=== PATIENT | male | born 1960 | race Hispanic/Latino ===

== ENCOUNTER 2017-01-02 15:40 | Inpatient (IN) | payer OTHER ==
[2017-01-02 18:19] LABS: Basophils % (Auto) 0.8 % (0.0-1.8); Eosinophils % (Auto) 1.4 % (0.0-4.3); Hematocrit 40.7 % (35.5-45.6); Hemoglobin 13.8 gm/dl (11.8-15.2); Mean Corpuscular HGB Conc 34 % (32-34); Mean Corpuscular Hemoglobin 28 pg (28-32); Mean Corpuscular Volume 83 fl (84-94); Platelet Count 243 K/mm3 (140-440); Red Cell Distribution Width 14.1 % (13.2-15.2); White Blood Count 7.9 K/mm3 (4.5-11.0)
[2017-01-02 18:43] LABS: Anion Gap 19 mmol/L; Blood Urea Nitrogen 19 mg/dL (9-20); Carbon Dioxide 24 mmol/L (22-30); Chloride 105.6 mmol/L (98-107); Glucose 163 mg/dL (75-100); Potassium 4.4 mmol/L (3.6-5.0); Sodium 144 mmol/L (137-145)
[2017-01-02 19:37] LABS: Cholesterol 191 mg/dL (50-199); HDL Cholesterol 40 mg/dL (40-59); LDL Cholesterol,Direct TNR mg/dL (50-130); Triglycerides 414 mg/dL (2-149)
[2017-01-02 20:45] LABS: INR 0.96 (0.87-1.13)
--- NOTE | 2017-01-02 20:51 | Cat Scan Report ---
FINAL REPORT PROCEDURE: CT HEAD/BRAIN WO CON TECHNIQUE: Computerized tomography of the head was performed without contrast material. HISTORY: tia vs cva COMPARISON: No prior studies are available for comparison. FINDINGS: Brain: Brain density appears normal. No evidence of intracranial hemorrhage. No parenchymal hemorrhage, mass lesions or mass effect are seen. No abnormal extraxial fluid collects or masses are seen. Ventricles: Ventricles are normal size and are midline. Sulcal pattern and fissures are mildly prominent consistent with mild atrophy. Bone Windows: No evidence of skull fracture. Paranasal sinuses: Nodular densities are seen inferiorly in the right maxillary sinus measuring up to 2 centimeters suggesting mucous retention cysts and/or polyps. No air-fluid levels are identified. Mastoid air cells: Mastoid air cells inferiorly are partially opacified. A few air-fluid levels are visualized. The remainder the mastoid air cells bilaterally are otherwise clear. IMPRESSION: No acute intracranial abnormalities are identified. If clinically indicated MRI of the brain could be obtained for further evaluation. Mild atrophy. Mild mastoid air cell disease visualized on the left. I cannot exclude mild acute mastoiditis. Mild paranasal sinus disease as described.
--- NOTE | 2017-01-02 21:30 | Cat Scan Report ---
FINAL REPORT PROCEDURE: CT ANGIO CHEST TECHNIQUE: Computerized tomographic angiography of the chest was performed after the IV injection of iodinated nonionic contrast including image processing. The image data was postprocessed using 2-dimensional multiplanar reformatted (MPR) and 3-dimensional (MIP and/or volume rendered) techniques. HISTORY: dissection protocol COMPARISON: No prior studies are available for comparison. FINDINGS: Pulmonary outflow tract, right and left main pulmonary arteries and their proximal branches: Clear, no filling defects seen to suggest pulmonary embolus. Pericardium: No evidence of pericardial effusion. Thoracic aorta: No evidence of aneurysmal dilatation or dissection. Coronary arteries: Are unremarkable. Mediastinum and hilar regions: Nonspecific subcentimeter lymph nodes are visualized. No pathologically enlarged lymph nodes or masses are identified. Lung Crenshaw: Clear Upper abdomen: Low-density nodule projects in the upper 3rd of the renal cortex of the right and left kidney which appear to represent renal cortical cyst. No acute abnormalities are seen in the upper abdomen. Other: None IMPRESSION: No evidence of pulmonary embolus. Renal cortical cysts visualized. No other abnormalities are seen.
--- NOTE | 2017-01-02 21:37 | Cat Scan Report ---
FINAL REPORT PROCEDURE: CT ANGIO ABDOMEN PELVIS TECHNIQUE: Computerized axial tomographic angiography of the abdomen and pelvis was performed during the IV injection of iodinated nonionic contrast. The image data was postprocessed using 2-dimensional multiplanar reformatted (MPR) and 3-dimensional (MIP and/or volume rendered) techniques. HISTORY: dissection protocol COMPARISON: No prior studies are available for comparison. FINDINGS: Mild atherosclerotic changes are visualized in the abdominal aorta. The vessel is mildly tortuous. There is no aneurysm or dissection visualized. Iliac arteries are mildly tortuous although widely patent. No dissection or aneurysm is seen in the abdominal aorta or iliac vessels. Celiac trunk and superior mesenteric artery as well as both renal arteries and the inferior mesenteric artery appear widely patent. Lung bases are clear. Liver density appears mildly diffusely decreased consistent with fatty infiltration. There appears to be mild sparing of fatty infiltration adjacent to the gallbladder fossa. The liver is otherwise unremarkable. The gallbladder, the adrenal glands, the pancreas and the spleen are unremarkable. Renal cortical cysts appear to project within and from the renal cortex of both kidneys. There is no hydronephrosis. No renal calculi are identified. Urinary bladder is unremarkable. Mild diverticulosis is seen in the sigmoid colon without evidence of diverticulitis. Bowel loops otherwise are unremarkable. Normal-appearing appendix is seen in the right lower quadrant. No acute bony abnormalities are seen. IMPRESSION: Minimal atherosclerotic changes are present. Vessels are mildly tortuous. There is no evidence of aneurysm, dissection or occlusion. Renal cortical cysts appear to be visualized bilaterally measuring up to 5.1 centimeter. The kidneys are otherwise unremarkable. Mild colonic diverticulosis without evidence of diverticulitis. Mild fatty infiltration the liver as described.
--- NOTE | 2017-01-02 21:55 | Emergency Department Report ---
ED General Adult HPI - General Chief complaint: Fall Stated complaint: CHEST PAIN Time Seen by Provider: 01/02/17 18:34 Source: patient, EMS, RN notes reviewed Mode of arrival: Stretcher Limitations: No Limitations - History of Present Illness Initial comments: This is a 56-year-old male, he is previously unknown to me. Past medical history includes obesity, hypertension, high cholesterol. Patient is brought to the hospital by EMS. As per EMS documentation, the patient complained of chest pain, left-sided weakness. The patient reports that he was at work and had a mechanical fall. 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 There is no documented facial droop, slurred speech, although EMS indicated that the patient seemed confused and slow to respond. The patient further reports that he fell onto his right leg and left arm. Prior to falling, he had no headache or neck pain. He is not certain if he had a syncopal event. He thinks he did not lose consciousness but is not certain. EMS documents the patient's blood pressure was quite elevated at 210/101, and subsequently 182/101. They gave aspirin and nitroglycerin in the field. Patient indicates no exacerbating or relieving factors. To me, the patient complains of fall, and nonspecific tingling in the left upper extremity and right lower extremity. He thinks he may have had chest pain, but he is not certain. -: Sudden Improves with: none Worsens with: none Associated Symptoms: weakness - Related Data Home Medications Medication Instructions Recorded Confirmed Last Taken Naproxen [Naproxen TAB] 1 tab PO PRN PRN 01/02/17 01/02/17 Unknown Previous Rx's Medication Instructions Recorded Last Taken Type Aspirin [Adult Low Dose Aspirin EC] 81 mg PO QDAY #30 tablet. 01/04/17 Unknown Rx Atenolol [Tenormin] 100 mg PO DAILY #30 tablet 01/04/17 Unknown Rx Famotidine [Pepcid] 20 mg PO BID #60 tablet 01/04/17 Unknown Rx Lovastatin [Altoprev] 40 mg PO QPM #30 tab.er.24h 01/04/17 Unknown Rx Allergies Allergy/AdvReac Type Severity Reaction Status Date / Time No Known Allergies Allergy Verified 01/02/17 16:37 ED Review of Systems ROS: Stated complaint: CHEST PAIN Other details as noted in HPI Constitutional: malaise, weakness Eyes: denies: eye discharge ENT: denies: epistaxis Respiratory: denies: cough Cardiovascular: chest pain Gastrointestinal: denies: abdominal pain Musculoskeletal: arthralgia, myalgia Skin: denies: lesions Neurological: weakness Psychiatric: anxiety ED Past Medical Hx - Past Medical History Previous Medical History?: Yes Hx Hypertension: Yes Hx CVA: No Hx Heart Attack/AMI: No Hx Congestive Heart Failure: No Hx Diabetes: No Hx Deep Vein Thrombosis: No Hx Pulmonary Embolism: No Hx GERD: No Hx Liver Disease: No Hx Renal Disease: No Hx of Cancer: No Hx Sickle Cell Disease: No Hx Arthritis: No Hx Headaches / Migraines: No Hx Seizures: No Hx Kidney Stones: No Hx Psychiatric Treatment: No Hx Asthma: No Hx COPD: No Hx Tuberculosis: No Hx Dementia: No Hx HIV: No - Surgical History Past Surgical History?: No - Social History Smoking Status: Never Smoker Substance Use Type: None - Medications Home Medications: Home Medications Medication Instructions Recorded Confirmed Last Taken Type Naproxen [Naproxen TAB] 1 tab PO PRN PRN 01/02/17 01/02/17 Unknown History Aspirin [Adult Low Dose Aspirin EC] 81 mg PO QDAY #30 tablet.dr 01/04/17 Unknown Rx Atenolol [Tenormin] 100 mg PO DAILY #30 tablet 01/04/17 Unknown Rx Famotidine [Pepcid] 20 mg PO BID #60 tablet 01/04/17 Unknown Rx Lovastatin [Altoprev] 40 mg PO QPM #30 tab.er.24h 01/04/17 Unknown Rx ED Physical Exam - General Limitations: No Limitations General appearance: obese - Head Head exam: Present: atraumatic, normocephalic - Eye Eye exam: Present: normal appearance, PERRL, EOMI. Absent: nystagmus - ENT ENT exam: Present: normal exam, normal orophraynx, mucous membranes moist, normal external ear exam - Neck Neck exam: Present: normal inspection, full ROM. Absent: tenderness, meningismus - Respiratory Respiratory exam: Present: normal lung sounds bilaterally. Absent: respiratory distress, wheezes, rales, rhonchi, stridor, chest wall tenderness, accessory muscle use, decreased breath sounds, prolonged expiratory - Cardiovascular Cardiovascular Exam: Present: regular rate, normal rhythm, normal heart sounds. Absent: bradycardia, tachycardia, irregular rhythm, systolic murmur, diastolic murmur, rubs, gallop - GI/Abdominal GI/Abdominal exam: Present: soft, normal bowel sounds. Absent: distended, tenderness, guarding, rebound, rigid, pulsatile mass - Rectal Rectal exam: Present: deferred - Extremities Exam Extremities exam: Present: normal inspection, full ROM, other (there is an abrasion on the right lower extremity. The compartments are soft. 2+ pulses noted in the bilateral upper and lower extremities). Absent: tenderness, normal capillary refill, pedal edema, calf tenderness - Back Exam Back exam: Present: normal inspection, full ROM. Absent: tenderness, CVA tenderness (L), muscle spasm, paraspinal tenderness, vertebral tenderness - Neurological Exam Neurological exam: Present: alert, oriented X3, other (Extraocular movements intact. Tongue midline. No facial droop. Facial sensation intact to light touch in the V1, V2, V3 distribution bilaterally. 5 and 5 strength in 4 extremities.. Sensation is intact to light touch in 4 extremities.). Absent: motor sensory deficit - Psychiatric Psychiatric exam: Present: anxious - Skin Skin exam: Present: warm, dry, intact, normal color. Absent: rash ED Course Vital Signs 01/02/17 01/02/17 01/02/17 15:50 16:00 16:16 Temperature 98.4 F Pulse Rate 79 Respiratory 16 Rate Blood Pressure 133/91 Blood Pressure [Right] O2 Sat by Pulse 97 98 98 Oximetry 01/02/17 01/02/17 01/02/17 16:31 16:45 17:00 Temperature Pulse Rate 84 87 Respiratory 13 10 L Rate Blood Pressure 131/77 124/67 138/92 Blood Pressure [Right] O2 Sat by Pulse 98 98 95 Oximetry 01/02/17 01/02/17 01/02/17 17:15 17:30 17:33 Temperature Pulse Rate 85 85 Respiratory 13 16 16 Rate Blood Pressure 138/92 131/81 Blood Pressure [Right] O2 Sat by Pulse 96 96 Oximetry 01/02/17 01/02/17 01/03/17 20:52 22:56 00:17 Temperature 98.4 F 98.6 F Pulse Rate 84 75 78 Respiratory 16 16 Rate Blood Pressure Blood Pressure 151/95 155/84 [Right] O2 Sat by Pulse 98 96 Oximetry ED Medical Decision Making - Lab Data Result diagrams: 01/04/17 06:05 01/04/17 06:05 Vital Signs 01/02/17 01/02/17 01/02/17 15:50 16:00 16:16 Temperature 98.4 F Pulse Rate 79 Respiratory 16 Rate Blood Pressure 133/91 Blood Pressure [Right] O2 Sat by Pulse 97 98 98 Oximetry 01/02/17 01/02/17 01/02/17 16:31 16:45 17:00 Temperature Pulse Rate 84 87 Respiratory 13 10 L Rate Blood Pressure 131/77 124/67 138/92 Blood Pressure [Right] O2 Sat by Pulse 98 98 95 Oximetry 01/02/17 01/02/17 01/02/17 17:15 17:30 17:33 Temperature Pulse Rate 85 85 Respiratory 13 16 16 Rate Blood Pressure 138/92 131/81 Blood Pressure [Right] O2 Sat by Pulse 96 96 Oximetry 01/02/17 20:52 Temperature 98.4 F Pulse Rate 84 Respiratory 16 Rate Blood Pressure Blood Pressure 151/95 [Right] O2 Sat by Pulse 98 Oximetry Lab Results 01/02/17 01/02/17 01/02/17 Range/Units 17:56 17:56 17:56 WBC 7.9 (4.5-11.0) K/mm3 RBC 4.90 (3.65-5.03) M/mm3 Hgb 13.8 (11.8-15.2) gm/dl Hct 40.7 (35.5-45.6) % MCV 83 L (84-94) fl MCH 28 (28-32) pg MCHC 34 (32-34) % RDW 14.1 (13.2-15.2) % Plt Count 243 (140-440) K/mm3 Lymph % (Auto) 23.5 (13.4-35.0) % [place] % (Auto) 7.6 H (0.0-7.3) % Eos % (Auto) 1.4 (0.0-4.3) % Baso % (Auto) 0.8 (0.0-1.8) % Lymph # 1.9 (1.2-5.4) K/mm3 [place] # 0.6 (0.0-0.8) K/mm3 Eos # 0.1 (0.0-0.4) K/mm3 Baso # 0.1 (0.0-0.1) K/mm3 Seg Neutrophils % 66.7 (40.0-70.0) % Seg Neutrophils # 5.3 (1.8-7.7) K/mm3 PT (12.2-14.9) Sec. INR (0.87-1.13) APTT (24.2-36.6) Sec. Sodium 144 (137-145) mmol/L Potassium 4.4 (3.6-5.0) mmol/L Chloride 105.6 (98-107) mmol/L Carbon Dioxide 24 (22-30) mmol/L Anion Gap 19 mmol/L BUN 19 (9-20) mg/dL Creatinine 1.0 (0.8-1.5) mg/dL Estimated GFR > 60 ml/min BUN/Creatinine Ratio 19.00 % Glucose 163 H (75-100) mg/dL Calcium 9.0 (8.4-10.2) mg/dL Troponin T 0.159 H* (0.00-0.029) ng/mL Triglycerides 414 H (2-149) mg/dL Cholesterol 191 (50-199) mg/dL LDL Cholesterol Direct TNR HDL Cholesterol 40 (40-59) mg/dL Cholesterol/HDL Ratio 4.77 % //17 Range/Units 20:18 WBC (4.5-11.0) K/mm3 RBC (3.65-5.03) M/mm3 Hgb (11.8-15.2) gm/dl Hct (35.5-45.6) % MCV (84-94) fl MCH (28-32) pg MCHC (32-34) % RDW (13.2-15.2) % Plt Count (140-440) K/mm3 Lymph % (Auto) (13.4-35.0) % [place] % (Auto) (0.0-7.3) % Eos % (Auto) (0.0-4.3) % Baso % (Auto) (0.0-1.8) % Lymph # (1.2-5.4) K/mm3 [place] # (0.0-0.8) K/mm3 Eos # (0.0-0.4) K/mm3 Baso # (0.0-0.1) K/mm3 Seg Neutrophils % (40.0-70.0) % Seg Neutrophils # (1.8-7.7) K/mm3 PT 13.3 (12.2-14.9) Sec. INR 0.96 (0.87-1.13) APTT 31.0 (24.2-36.6) Sec. Sodium (137-145) mmol/L Potassium (3.6-5.0) mmol/L Chloride (98-107) mmol/L Carbon Dioxide (22-30) mmol/L Anion Gap mmol/L BUN (9-20) mg/dL Creatinine (0.8-1.5) mg/dL Estimated GFR ml/min BUN/Creatinine Ratio % Glucose (75-100) mg/dL Calcium (8.4-10.2) mg/dL Troponin T (0.00-0.029) ng/mL Triglycerides (2-149) mg/dL Cholesterol (50-199) mg/dL LDL Cholesterol Direct HDL Cholesterol (40-59) mg/dL Cholesterol/HDL Ratio % - EKG Data -: EKG Interpreted by Me EKG shows normal: sinus rhythm, axis, intervals, QRS complexes, ST-T waves Rate: normal - EKG Data When compared to previous EKG there are: previous EKG unavailable - Radiology Data Radiology results: report reviewed interpreted by me: X-ray the chest is negative Noncontrast CT scan of the brain is negative. CT scan of the chest, abdomen, pelvis negative for dissection/pulmonary embolus. - Medical Decision Making Differential diagnosis: Aortic dissection, stroke, TIA, acute coronary syndrome / nsetmi Assessment and plan: 56-year-old male with atypical history, currently has a GCS of 15, with an NIH score of 0. He is clinically sober at this time, CT scan of the chest, abdomen, pelvis negative for aortic dissection. No pulmonary embolus or DVT risk factors, low risk by well's criteria. He is given aspirin prior to my arrival. He is chest pain-free at this time. Elevated troponin is appreciated, and the context of normal renal function. Patient did endorse chest pain to EMS prior to arrival, with nonspecific neurologic symptoms, to me he denies chest pain. The significance of this elevated troponin is uncertain. The patient will be admitted and treated presumptively for an NSTEMI. Case is discussed with cardiology on-call, Dr. Mayfiedl, he will follow as a consult. Given possibility of transient ischemic attack and atypical clinical story, risks of anticoagulation outweigh the benefits, this patient is theoretically at risk for intracranial hemorrhage. Aspirin was given prior to my arrival. Case is presented to the Hospital physician, Dr. Hernandez, who accept the patient. Critical care attestation.: If time is entered above; I have spent that time in minutes in the direct care of this critically ill patient, excluding procedure time. ED Disposition Clinical Impression: NSTEMI (non-ST elevated myocardial infarction) Disposition: 09 OP ADMIT IP TO THIS HOSP Is pt being admited?: Yes Condition: Good
[2017-01-02] MEDS ORDERED: HEPARIN 10,000 UNITS/10 ML IV ONE (22:54)
[2017-01-02] MEDS ORDERED: HEPARIN/ 0.45% NACL-25,000 UNIT/500 ML 25,000 UNIT/500 ML BAG IV SCH (23:00)
[2017-01-02] MEDS ORDERED: MORPHINE IV PRN (23:02)
[2017-01-02] MEDS ORDERED: ZOFRAN IV PRN (23:03)
[2017-01-02 23:07] LABS: Creatine Kinase MB 2.9 ng/mL (0.0-4.0)
[2017-01-02 23:08] LABS: Creatine Kinase 302 units/L (55-170)
[2017-01-02] MEDS ORDERED: TYLENOL PO PRN (23:22)
--- NOTE | 2017-01-03 00:14 | History and Physical Report ---
CHIEF COMPLAINT: Chest pain. Other complaint includes near syncopal feeling and tingling in the extremities. HISTORY OF PRESENT ILLNESS: The patient is a 56-year-old female who stated he was at walk and had some chest pain with feeling of left-sided weakness. The patient said he fell and then had numbness in the left upper extremity or right lower extremity. There was also history of some confusion. There was no history of dizziness. No history of fever or chills. No history of cough. The patient also felt weak and EMS was called and EMS when they got there, the patient appeared to be a little bit confused and had elevated blood pressure and he was given aspirin and nitroglycerin, and transported to the Emergency Room. PAST MEDICAL HISTORY: Pertinent for hypertension. Also, the patient has past history of diabetes mellitus, and hypercholesterolemia. FAMILY HISTORY: Noncontributory. SOCIAL HISTORY: The patient does not smoke, does not drink alcohol and does not use illicit drugs. MEDICATIONS: The patient is on aspirin 81 mg daily and also on naproxen, dose and frequency unknown. The patient's other medications are not known. ALLERGIES: There are no known drug allergies. REVIEW OF SYSTEMS: CONSTITUTIONAL: There is no fever, no chills, no diaphoresis. HEENT: There is no headache or sore throat. CARDIOVASCULAR SYSTEM: Chest pain present. There is no orthopnea. RESPIRATORY SYSTEM: There is no shortness of breath and no cough. GASTROINTESTINAL SYSTEM: There is no nausea, no vomiting, no abdominal pain, diarrhea or constipation. NEUROLOGICAL SYSTEM: Confusion noted. Numbness in the left upper extremity was noted. MUSCULOSKELETAL SYSTEM: Pain in the right lower extremity noted. No joint swelling. DERMATOLOGICAL SYSTEM: There is no skin rash or itching. GENITOURINARY SYSTEM: There is no dysuria, hematuria, or flank pain. Rest of system review is normal. PHYSICAL EXAMINATION: GENERAL: At the time of exam, the patient was found to be alert, oriented x 3, and not in acute distress. VITAL SIGNS: Shows temperature of 98.4 degrees Fahrenheit, pulse of 84, respirations 16, blood pressure 151/95, O2 sat of 98% on room air. HEENT: Showed pupils are to be equal, round, and reactive to light and accommodation. Extraocular muscles are intact. NECK: Supple with no JVD or carotid bruit. CARDIOVASCULAR SYSTEM: Show first and second heart sounds with no gallops or murmur. RESPIRATORY SYSTEM: Show good air entry on both sides of the lung with no abnormal breath sounds. GASTROINTESTINAL SYSTEM: Show abdomen to be full, soft, and nontender with no organomegaly or rigidity. NEUROLOGICAL: Showed no focal deficit. MUSCULOSKELETAL SYSTEM: Show no joint swelling or tenderness. DERMATOLOGICAL SYSTEM: Show no skin rash. GENITOURINARY SYSTEM: Showing no costovertebral angle tenderness. LABORATORY DATA: Food. IMAGING STUDIES: The patient had a CT of the abdomen done that shows mild colonic diverticulosis without diverticulitis, also CT of the abdomen and pelvis showed mild fatty infiltrate in the liver with also renal candidiasis p.r.n. bilaterally measuring up to 5.1 cm with unremarkable kidney. The patient had a CT angio of the chest done that shows no PE. The patient's head CT shows mild mastoid air cell disease, suggestive of acute mastoiditis. There is mild paranasal sinus disease, but there is no acute intracranial lesion. The patient's labs, CBC came back unremarkable. Coagulation study was unremarkable. The patient's chemistry was normal except for elevated troponin level with a value of 0.159, which was the first level of troponin. The patient's triglyceride was also high with a value of 414. DIAGNOSIS: Non-ST elevation myocardial infarction. PLAN: The patient will be admitted to medical floor on telemetry and will have serial cardiac enzymes involving troponin, total CK check q.6 hours x 2 more levels. The patient will continue Cardiology consult with Dr. Moses Nicolas ordered by the Emergency Room doctor. The patient will be on IV heparin bolus dose per Cardiology protocol and will be on nitro paste 1-inch to anterior chest wall q.6 hours. The patient will also be on aspirin 325 mg by mouth daily and morphine 2 mg IV every 3 hours as needed for pain. The patient will be on Tylenol 650 mg by mouth every 6 hours for fever and headache and will remain n.p.o. for possible intervention by the food production supervisor. The patient will be on oxygen by nasal cannula at 2 liter per minute. JOB# [id number] OCN/NTS
[2017-01-03] MEDS: NITRO-BID 2% TP SCH ×5 (01:11→18:54)
[2017-01-03 01:13] LABS: Creatine Kinase MB 2.6 ng/mL (0.0-4.0)
[2017-01-03 01:16] LABS: Creatine Kinase 335 units/L (55-170)
--- NOTE | 2017-01-03 07:42 | Admit Criteria Form ---
Admission Criteria Documentation: CARDIOLOGY GRG Clinical Indications for Admission to Inpatient Care ([place]/check or initial the applicable condition/criteria) Hospital admission is needed for appropriate care of the patient because of ANY ONE of the following: [ ] I. Hemodynamic instability as indicated by ALL of the following (1)(2)(3) (4)(5)(6)(7)(8)(9)(10) [ ]a) Vital sign abnormality not readily corrected by appropriate treatment with 12-24 hours for ANY ONE: [ ]i) Hypotension that persists despite appropriate treatment (eg, volume repletion) [ ]ii) Tachycardiathat persists despite appropriate tx ( e.g., analgesia, fluids, sedation as indicated [ ]iii) Orthostatic vital sign changes that persists despite appropriate treatment (eg, volume repletion) [ ]b) Vital sign abnormailty that is severe indicated by ANY ONE of the following: [ ]i) Inadequate perfusion indicated by ANY ONE of the following: [ ] 1) Lactic acidosis (> 2 mmol/L) [ ] 2) New abnormal capillary refill (> 3 seconds) [ ] 3) Reduced urine output [ ] 4) New altered mental status [ ] 5) Myocardial Ischemia [ ] 6) Other metabolic acidosis (arterial pH <7.35 ) not otherwise explained. [ ]ii) Mean arterial pressure[A] less than 60 mm Hg [ ]iii) Mean arterial pressure[A] less than 70 mm Hg after 30 minutes of appropriate treatment (eg, fluid resuscitation) [ ]iv) Sustained heart rate greater than 120 beats per minute in adult or child 6 years or older[B] [ ]v) IV inotropic or vasopressor medication required to maintain adequate blood pressure or perfusion [ ] II. Severe heart failure as indicated by ANY ONE of the following(17)(18) [ ]a) Respiratory distress [ ]b) Hypotension [ ]c) Debilitating anasarca refractory to therapy (eg, tissue breakdown with infection)[C](19) [ ]d) Cardiac arrhythmias of immediate concern [ ]e) Myocardial ischemia [ ] III. Cardiac arrhythmias or findings of immediate concern indicated by ANY ONE of the following (21)(22): [ ] a) Heart rhythms that are inherently dangerous or unstable indicated by ANY ONE of the following (23)(24)(25): [ ] i) Resuscitated ventricular fibrillation or cardiac arrest [ ] ii) Ventricular escape rhythm [ ] iii) Sustained ventricular tachycardia (30 seconds or more of ventricular rhythm at greater than 100 beats per minute) [ ] iv) Nonsustained ventricular tachycardia and ANY ONE of the following: [ ] 1) Suspected cardiac ischemia as cause or consequence of ventricular tachycardia [ ] 2) Acute myocarditis [ ] b) Unstable cardiac conduction defects indicated by ANY ONE of the following(25)(26)(27) [ ] i) Type II second-degree atrioventricular block [ ]ii) Third-degree atrioventricular block [ ]iii) New-onset left bundle branch block with suspected myocardial ischemia [ ]c) Any heart rhythm and ANY ONE of the following (23)(24)(28)(29) (30) [ ] i) Continuous long-term ECG monitoring needed (e.g., initiation of drug requiring monitoring for more than 24 hours) [ ] ii) Patient has automatic implanted cardioverter defibrillator that is repeatedly firing, malfunctioning, or in need of immediate adjustment of settings beyond the scope of ambulatory or observation care [ ]d) Heart rhythms of concern due to ANY ONE of the following: [ ] i) Hypotension [ ] ii) Respiratory distress [ ] iii) Association with other significant symptoms (e.g., bradycardia with syncope or ongoing dizziness, supraventricular tachycardia with chest pain (28)(29)(31) [ ] IV. Monitoring for cardiac contusion beyond the scope of observation care needed [A](32)(33)(34) [ ] V. Surgical or device complication (e.g., valve replacement complication , ICD disfunction or pacemaker dysfunction) (49)(50)(51)(52)(53)(54) [ ] . Inpatient palliative care needed. [F](51)(52) Also use Inpatient Palliative Care Criteria [ ] VII. Nonbacterial thrombotic (marantic) endocarditis(43)(44)(55)(56)(57) [X ] VIII. Cardiology condition, symptom, or finding for which emergency and observation care has failed or are not considered appropriate. [ ] IX. Acute valvular disease requiring inpatient as indicated by ANY ONE of the following (40)(41) [ ]a) Acute valvular regurgitation (42) [ ]b) Noninfectious valvulitis (43)(44) [ ]c) Obstructive valve thrombosis (45)(46) [ ]d) Paravalvular leak(47)(48) [ ]e) Other significant valvular disorder remaining after emergency or observation level of care (as appropriate) [ ]X. Pericardial disease requiring inpatient treatment as indicated by ANY ONE of the following (35)(36)(37)(38) [ ]a) Suspected tamponade [ ]b) Hemopericardium [ ]c) Other significant pericardial disorder remaining after emergency or observation level of care (as appropriate)(39) [ ] XI. Cardiac ischemia beyond scope of emergency and observation care. [ ] XII. Cyanotic heart disease requiring inpatient care as indicated by 1 or more of the following(58)(59)(60): [ ]a) Acute onset of hypoxemia [ ]b) Exacerbation [ ] XIII. Hypertension requiring inpatient treatment as indicated by ANYONE of the following(11)(12)(13)(14): [ ]a) Severe hypertension (SBP greater than 180 mm Hg or DBP greater than 110 mm Hg, or greater than the 95th percentile for age, gender, and height in pediatric patients) that cannot be controlled (eg, to SBP less than 160 mm Hg and DBP less than 100 mm Hg) by emergency department or observation care treatment(15) [ ]b) Acute end organ damage secondary to hypertension (SBP greater than 140 mm Hg or DBP greater than 90 mm Hg) as indicated by ANYONE of the following: [ ] i) Hypertensive encephalopathy (eg, Altered mental status)(16) [ ] ii) Cerebral infarction [ ] iii) Intracranial hemorrhage [ ] iv) Myocardial ischemia or infarction [ ] v) Heart failure (eg, pulmonary edema) [ ] vi) Aortic dissection [ ] vii) Increased creatinine (new) with reduction of more than 50% in estimated glomerular filtration rate from baseline [ ] viii) Papilledema [ ] ix) Retinal hemorrhage [ ] x) Microangiopathic hemolytic anemia [ ] xi) Seizure [ ] xii) Other significant finding secondary to hypertension [ ] XIV. Complications of transplanted heart indicated by ANY ONE of the following(61): [ ]a) Acute graft rejection requiring inpatient management (eg, intravenous imunosuppression)(62)(63) [ ]b) Acute graft heart failure indicated by ANY ONE of the following(64): [ ] i) Hemodynamic instability [ ] ii) Cardiac arrhythmias of immediate concern [ ] iii) Pulmonary edema that is very severe (eg, mechanical ventilation needed, imminent or likely, need for 100% oxygen to keep oxygen saturation above 90%) [ ] iv) Pulmonary edema that is persistent as indicated by ALL of the following: [ ] 1) New need for oxygen therapy to keep oxygen saturation above 90 % (or increased FiO2 need from baseline) [ ] 2) Has not improved sufficiently with emergency department or observation care IV diuretics or other heart failure treatments[E]. [ ] iv) Altered mental status that is severe or persistent [ ] iv) Increased creatinine (new on laboratory test) with reduction of more than 50% in estimated glomerular filtration rate from baseline [ ] iv) Progressively (ongoing) rising creatinine (known from past laboratory test) with reduction of more than 25% in estimated glomerular filtration rate from baseline [ ] iv) Acute renal failure [ ] iv) Acute peripheral ischemia (eg, examination shows pulseless, cool, mottled, or cyanotic extremity) [ ] iv) Pulmonary artery catheter monitoring needed [ ] iv) Other sign or symptom of heart failure requiring inpatient treatment (ie, too severe or not responsive to outpatient and observation care treatment) [ ]c) Infection requiring inpatient management (eg, Hemodynamic instability, need for intravenous antimicrobial treatment)(66)(67)(68)(69)(70) [ ]d) Cardiac allograft vasculopathy requiring inpatient management (eg evidence of cardiacischemia)(71) [ ]e) Other complication of transplanted heart (eg, stroke, severe pulmonary hypertension, severe valvular dysfunction) requiring inpatient management(72) The original [employer] content created by [employer] has been revised. The portions of the content which have been revised are identified through the use of italic text or in bold, and [facility] has neither reviewed nor approved the modified material. All other unmodified content is copyright [employer]. Please see references footnoted in the original [employer] edition 2017 Admission Criteria Met: Yes
--- NOTE | 2017-01-03 07:47 | XRay Report ---
Single view chest: History: Fall. Findings: Borderline cardiomegaly. Trachea is midline. No consolidation, pneumothorax or pleural effusion. Impression: No acute cardiopulmonary findings.
--- NOTE | 2017-01-03 09:48 | Progress Note ---
Assessment and Plan Assessment and plan: Chest pain, atypical - currently resolved; ECG with NAF. Elevated troponin - elevated x 1 set; negative for AMI for subsequent 3 sets with normal CK MB. Cardiology following. Stress test pending. Left-sided weakness. Check MRI rule out CVA. S/p fall. PT/OT evaluation. Hypertension. Resume antihypertensive medications. H/o atrial fibrillation - no evidence of arrhythmia on telemetry thus far; pt with current CHADS score of 1 (HTN). History Interval history: No new issues overnight. Hospitalist Physical - Constitutional Vitals: Temp Pulse Resp BP Pulse Ox 98.6 F 78 16 155/84 96 01/02/17 22:56 01/03/17 00:17 01/02/17 22:56 01/02/17 22:56 01/02/17 22:56 General appearance: Present: no acute distress, well-nourished - EENT Eyes: Present: PERRL, EOM intact ENT: hearing intact, clear oral mucosa, dentition normal - Neck Neck: Present: supple, normal ROM - Respiratory Respiratory effort: normal Respiratory: bilateral: CTA - Cardiovascular Rhythm: regular Heart Sounds: Present: S1 & S2. Absent: gallop, rub - Extremities Extremities: no ischemia, No edema, Full ROM - Abdominal General gastrointestinal: soft, non-tender, non-distended, normal bowel sounds - Integumentary Integumentary: Present: clear, warm, dry - Neurologic Neurologic: CNII-XII intact, moves all extremities Results - Labs CBC & Chem 7: 01/02/17 17:56 01/02/17 17:56 Labs: Laboratory Last Values WBC 7.9 K/mm3 (4.5-11.0) 01/02/17 17:56 RBC 4.90 M/mm3 (3.65-5.03) 01/02/17 17:56 Hgb 13.8 gm/dl (11.8-15.2) 01/02/17 17:56 Hct 40.7 % (35.5-45.6) 01/02/17 17:56 MCV 83 fl (84-94) L 01/02/17 17:56 MCH 28 pg (28-32) 01/02/17 17:56 MCHC 34 % (32-34) 01/02/17 17:56 RDW 14.1 % (13.2-15.2) 01/02/17 17:56 Plt Count 243 K/mm3 (140-440) 01/02/17 17:56 Lymph % (Auto) 23.5 % (13.4-35.0) 01/02/17 17:56 [place] % (Auto) 7.6 % (0.0-7.3) H 01/02/17 17:56 Eos % (Auto) 1.4 % (0.0-4.3) 01/02/17 17:56 Baso % (Auto) 0.8 % (0.0-1.8) 01/02/17 17:56 Lymph # 1.9 K/mm3 (1.2-5.4) 01/02/17 17:56 [place] # 0.6 K/mm3 (0.0-0.8) 01/02/17 17:56 Eos # 0.1 K/mm3 (0.0-0.4) 01/02/17 17:56 Baso # 0.1 K/mm3 (0.0-0.1) 01/02/17 17:56 Seg Neutrophils % 66.7 % (40.0-70.0) 01/02/17 17:56 Seg Neutrophils # 5.3 K/mm3 (1.8-7.7) 01/02/17 17:56 PT 13.3 Sec. (12.2-14.9) 01/02/17 20:18 INR 0.96 (0.87-1.13) 01/02/17 20:18 APTT 31.0 Sec. (24.2-36.6) 01/02/17 20:18 Heparin Anti-Xa Level 0.18 U.I./ml (0.3-0.7) L 01/03/17 07:16 Sodium 144 mmol/L (137-145) 01/02/17 17:56 Potassium 4.4 mmol/L (3.6-5.0) 01/02/17 17:56 Chloride 105.6 mmol/L (98-107) 01/02/17 17:56 Carbon Dioxide 24 mmol/L (22-30) 01/02/17 17:56 Anion Gap 19 mmol/L 01/02/17 17:56 BUN 19 mg/dL (9-20) 01/02/17 17:56 Creatinine 1.0 mg/dL (0.8-1.5) 01/02/17 17:56 Estimated GFR > 60 ml/min 01/02/17 17:56 BUN/Creatinine Ratio 19.00 % 01/02/17 17:56 Glucose 163 mg/dL (75-100) H 01/02/17 17:56 Calcium 9.0 mg/dL (8.4-10.2) 01/02/17 17:56 Total Creatine Kinase 335 units/L (55-170) H 01/03/17 00:31 CK-MB (CK-2) 2.6 ng/mL (0.0-4.0) 01/03/17 00:31 CK-MB (CK-2) Rel Index 0.7 (0-4) 01/03/17 00:31 Troponin T < 0.010 ng/mL (0.00-0.029) 01/03/17 00:31 Triglycerides 414 mg/dL (2-149) H 01/02/17 17:56 Cholesterol 191 mg/dL (50-199) 01/02/17 17:56 LDL Cholesterol Direct TNR 01/02/17 17:56 HDL Cholesterol 40 mg/dL (40-59) 01/02/17 17:56 Cholesterol/HDL Ratio 4.77 % 01/02/17 17:56
[2017-01-03 09:52] LABS: Creatine Kinase MB 2.4 ng/mL (0.0-4.0)
[2017-01-03 09:55] LABS: Creatine Kinase 249 units/L (55-170)
--- NOTE | 2017-01-03 10:25 | Consultation ---
History of Present Illness Consult date: 01/03/17 Requesting physician: OMAR MACHADO Consult reason: elevated troponin History of present illness: The pt is a 56 YO male with a past medical history significant for HTN and atrial fibrillation. He is previously unknown to our practice. He states that he has been seen in the past by [facility] cardiology. He presented following a mechanical fall yesterday while watching the eclipse. He states that he took a step backwards and tripped and fell onto a street curb onto his left side. He then developed left arm tingling and numbness. His coworker called EMS. Following EMS arrival, he noted the onset of chest pain. He describes his pain as a nonexertional, nonradiating, midsternal tightness which resolved yesterday evening. The pain was associated with nausea. He denies any SOB, palpitations, vomiting, diaphoresis, dizziness or syncope. Admission ECG showed NSR with NAF; first troponin was elevated at 0.159 with subsequent 3 sets of Ebony negative for AMI. 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 However, he discontinued these medications himself only a couple of months after his diagnosis of atrial fibrillation and has not followed up with any sales representative [employer] since then. Past History Past Medical History: atrial fib, hyperlipidemia Social history: lives with family, smoking (former). denies: alcohol abuse, prescription drug abuse Family history: no significant family history Medications and Allergies Allergies Allergy/AdvReac Type Severity Reaction Status Date / Time No Known Allergies Allergy Verified 01/02/17 16:37 Home Medications Medication Instructions Recorded Confirmed Last Taken Type Aspirin [Adult Low Dose Aspirin EC] 81 mg PO QDAY 01/02/17 01/02/17 Unknown History Naproxen [Naproxen TAB] 1 tab PO PRN PRN 01/02/17 01/02/17 Unknown History Active Meds: Active Medications Acetaminophen (Tylenol) 650 mg PO Q6H PRN PRN Reason: For Pain/Fever/Headache Aspirin (Aspirin) 325 mg PO QDAY LORENZO Heparin Sodium/Sodium Chloride (Heparin/ 0.45% Nacl-25,000 Unit/500 Ml) 25,000 unit in 500 mls @ 20 mls/hr IV TITRATE LORENZO; 1,000 UNITS/HR PRN Reason: Protocol Last Titration: 01/03/17 08:30 Dose: 1,150 units/hr, 23 mls/hr Influenza Virus Vaccine Quadrival (Fluarix Quad [id number](36 Mos+)) 0.5 ml IM .ONCE ONE Stop: 01/03/17 12:01 Morphine Sulfate (Morphine) 2 mg IV Q3H PRN PRN Reason: Pain, Moderate (4-6) Nitroglycerin (Nitro-Bid 2%) 1 inch TP QIDNTG LORENZO PRN Reason: Protocol Last Admin: 01/03/17 06:53 Dose: 1 inch Ondansetron HCl (Zofran) 4 mg IV Q6H PRN PRN Reason: Nausea And Vomiting Pneumococcal Polyvalent Vaccine (Pneumovax 23) 0.5 ml IM .ONCE ONE Stop: 01/03/17 12:01 Review of Systems Constitutional: no weight loss, no weight gain, no fever, no chills, no sweats Ears, nose, mouth and throat: no ear pain, no nose pain, no sinus pressure, no sinus pain Cardiovascular: chest pain, high blood pressure, no orthopnea, no palpitations, no rapid/irregular heart beat, no edema, no syncope, no lightheadedness, no shortness of breath, no dyspnea on exertion, no leg edema, no decreased exercise tolerance Gastrointestinal: nausea, no abdominal pain, no vomiting, no diarrhea, no constipation, no change in bowel habits Genitourinary Male: no dysuria, no hematuria, no flank pain, no discharge, no urinary frequency, no urinary hesitancy Musculoskeletal: shooting arm pain (LUE), no neck stiffness, no neck pain, no arm numbness/tingling, no low back pain, no shooting leg pain, no leg numbness/ tingling, no redness of joints Integumentary: no rash, no pruritis, no redness, no sores, no wounds Neurological: numbness (LUE), tingling (LUE), no head injury, no paralysis, no weakness, no parathesias, no seizures, no syncope, no lack of coordination Psychiatric: no anxiety, no memory loss Endocrine: no cold intolerance, no heat intolerance Hematologic/Lymphatic: no easy bruising, no easy bleeding, no lymphadenopathy Allergic/Immunologic: no urticaria, no wheezing, no persistent infections Physical Examination Vital Signs Temp Pulse Resp BP Pulse Ox 98.4 F 79 16 133/91 97 01/02/17 15:50 01/02/17 15:50 01/02/17 15:50 01/02/17 15:50 01/02/17 15:50 General appearance: no acute distress HEENT: Positive: PERRL, Normocephaly, Mucus Membranes Moist Neck: Positive: neck supple, trachea midline Cardiac: Positive: Reg Rate and Rhythm, S1/S2 Lungs: Positive: clear to auscultation Neuro: Positive: Grossly Intact, Cranial Nerve 2-12 Intact Abdomen: Positive: Unremarkable, Soft, Active Bowel Sounds. Negative: Tender Skin: Positive: Clear. Negative: Rash, Wound Musculoskeletal: No Fluid Collection, No Pain, Normal Range of Motion Extremities: Absent: edema Results 01/02/17 17:56 01/02/17 17:56 Cardiac Enzymes 01/03/17 01/03/17 Range/Units 00:31 07:16 CK-MB (CK-2) 2.6 2.4 (0.0-4.0) ng/mL - Imaging and Cardiology Echo: pending EKG: image reviewed EKG interpretations - Telemetry EKG Rhythm: Sinus Rhythm - EKG Sinus rhythms and dysrhythmias: sinus rhythm Assessment and Plan Assessment: Chest pain, atypical - currently resolved; ECG with NAF. Elevated troponin - elevated x 1 set; negative for AMI for subsequent 3 sets with normal CK MB. S/p mechanical fall HTN H/o atrial fibrillation - no evidence of arrhythmia on telemetry thus far; pt with current CHADS score of 1 (HTN). Plan: Proceed with lexiscan MPI stress test this AM. Await findings. Obtain echocardiogram. Assessment and plan reviewed with pt at bedside. The patient has been seen in conjunction with Dr. Yoselin Aguirre who agrees with the assessment and plan of care.
[2017-01-03] MEDS ORDERED: LEXISCAN IV ONE (11:08)
[2017-01-03] MEDS ORDERED: Fluarix Quad 2017-2018(36 MOS+) IM ONE (12:00)
[2017-01-03] MEDS ORDERED: PNEUMOVAX 23 IM ONE (12:00)
[2017-01-03] MEDS: ASPIRIN PO SCH (14:21)
--- NOTE | 2017-01-03 14:38 | Event Note ---
Date: 01/03/17 Lexiscan MPI stress test this AM negative for ischemia; echocardiogram with NAF. D/c heparin gtt. Currently stable cardiac status. Given stress/echo findings and resolution of chest pain, pt may discharge home from cardiology standpoint. Recommend that pt either follow up with physiotherapy aide in [facility] or follow up in our office with Oneyda Ballard, within 1-2 weeks of hospital discharge ). Erma NDIAYE NP / DR. TAVERAS
--- NOTE | 2017-01-03 20:23 | Magnetic Resonance Report ---
FINAL REPORT PROCEDURE: MR BRAIN WO CON TECHNIQUE: Magnetic resonance imaging of the brain was performed without contrast material. HISTORY: Left upper ext weakness COMPARISON: CT scan of the brain 01/02/2017 FINDINGS: There is no evidence of intracranial hemorrhage. No parenchymal hemorrhage, mass lesions or mass effect are identified. The ventricles are normal size and are midline. The sulcal pattern and fissures are mildly prominent consistent with mild atrophy. No abnormal extra-axial fluid collections or masses are seen. Normal henderson-white matter differentiation is visualized. There is no abnormal restricted diffusion that would suggest an acute ischemic event. No parenchymal masses are identified. The corpus callosum, region of the pituitary fossa and foramen magnum appear normal. There are multiple small air-fluid levels visualized in multiple mastoid air cells on the left inferiorly suggesting acute mastoiditis. Mastoid air cells on the right are clear. Nodular densities are seen in the right maxillary sinus inferiorly suggesting polyps and/or mucous retention cyst. Paranasal sinuses otherwise are clear. IMPRESSION: No acute intracranial abnormalities are identified. There is evidence of mild atrophy. Acute left-sided mastoiditis suspected as described. Mild paranasal sinus disease as described.
--- NOTE | 2017-01-04 02:15 | Treadmill Report ---
STRESS THALLIUM REPORT The resting myocardial images revealed homogeneous radioisotope activity except for very minimal decreased uptake in the inferior wall. On post-Lexiscan, myocardial perfusion images revealed irregularity of the myocardium due to artifact. However, radioisotope activity was noted to be fairly well distributed. Again, there was slightly diminished radioisotope uptake in the inferior wall as noted on the resting images. On gated scan, ejection fraction is noted to be normal at 70%. There is no transient ischemic dilatation. IMPRESSION: 1. This test is negative for ischemia. 2. Normal left ventricular systolic function with ejection fraction of 70%. JOB# [id number] ADRIANA/RAKESH
[2017-01-04] MEDS: NITRO-BID 2% TP SCH ×3 (06:21→14:57)
[2017-01-04 06:35] LABS: Eosinophils % (Auto) 2.6 % (0.0-4.3); Hematocrit 39.6 % (35.5-45.6); Hemoglobin 13.5 gm/dl (11.8-15.2); Mean Corpuscular HGB Conc 34 % (32-34); Mean Corpuscular Hemoglobin 29 pg (28-32); Mean Corpuscular Volume 84 fl (84-94); Platelet Count 217 K/mm3 (140-440); Red Blood Count 4.74 M/mm3 (3.65-5.03); Red Cell Distribution Width 14.3 % (13.2-15.2); White Blood Count 6.7 K/mm3 (4.5-11.0)
[2017-01-04 06:55] LABS: Anion Gap 19 mmol/L; BUN/Creatinine Ratio 18.75; Blood Urea Nitrogen 15 mg/dL (9-20); Calcium 8.9 mg/dL (8.4-10.2); Carbon Dioxide 21 mmol/L (22-30); Chloride 103.3 mmol/L (98-107); Glucose 134 mg/dL (75-100); Potassium 4.5 mmol/L (3.6-5.0); Sodium 139 mmol/L (137-145)
--- NOTE | 2017-01-04 10:32 | Discharge Summary ---
Providers - Providers Date of Admission: 01/02/17 22:51 Date of discharge: 01/04/17 Attending physician: ROBSON VICENTE Consults: Cardiology Primary care physician: ADDY KING MD Hospitalization Reason for admission: chest pain Condition: Good Pertinent studies: Chest x-ray Echocardiogram Strest test CT head Brain MRI Hospital course: Patient is a 56 years old obese male presented for chest pain and left-sided weakness. Acute coronary syndrome was excluded based on EKG, serial cardiac enzymes, echocardiogram and stress test. CVA excluded based on CT head and brain MRI. Patient is discharged in stable condition. PCP follow-up. Discharge diagnoses: Atypical chest pain - possible GERD Hypertension History of afib CVA ruled out Status post fall Obesity Disposition: DC- TO HOME OR SELFCARE Time spent for discharge: 35 min Core Measure Documentation - Palliative Care Palliative Care/ Comfort Measures: Not Applicable - Core Measures Any of the following diagnoses?: none Exam - Physical Exam Narrative exam: Seen and examined: - Constitutional Vitals: Temp Pulse Resp BP Pulse Ox 98.3 F 79 18 129/78 97 01/04/17 08:45 01/04/17 08:45 01/04/17 08:45 01/04/17 08:45 01/04/17 08:45 General appearance: Present: no acute distress, obese - EENT Eyes: Present: PERRL, EOM intact. Absent: scleral icterus, conjunctival injection - Respiratory Respiratory effort: normal Respiratory: bilateral: CTA, negative: rhonchi, wheezing - Cardiovascular Rhythm: regular Heart Sounds: Present: S1 & S2. Absent: systolic murmur - Extremities Extremities: no ischemia - Abdominal General gastrointestinal: Present: soft, non-tender, non-distended, normal bowel sounds - Psychiatric Psychiatric: cooperative - Neurologic Neurologic: CNII-XII intact, no focal deficits Plan Activity: advance as tolerated Diet: low cholesterol, low salt Follow up with: PRIMARY CARE, [Primary Care Provider] - 3-5 Days Prescriptions: Aspirin [Adult Low Dose Aspirin EC] 81 mg PO QDAY #30 tablet. Atenolol [Tenormin] 100 mg PO DAILY #30 tablet Famotidine [Pepcid] 20 mg PO BID #60 tablet Lovastatin [Altoprev] 40 mg PO QPM #30 tab.er.24h
[2017-01-04] MEDS: ASPIRIN PO SCH (11:32)
[2017-01-04] MEDS ORDERED: PNEUMOVAX 23 IM ONE (12:00)
[2017-01-04] MEDS ORDERED: Fluarix Quad 2017-2018(36 MOS+) IM ONE (12:00)
--- NOTE | 2017-01-04 13:05 | Query- Chest Pain ---
Cheyenne Munoz____Cj Date: 01/04/17 Punching Machine Operator/CDS:____Rohit Phone#: [phone] Exercise your independent professional judgment when responding to query. Questions asked do not imply a particular answer is desired or expected. We greatly appreciate your clarification on this issue. Clinical Documentation States: 56 year old male was admitted on 01/03/17. The hospitalist progress note (Dr. Abarca 01/03/17) states " Chest pain, atypical - currently resolved; ECG with NAF. Elevated troponin - elevated x 1 set; negative for AMI for subsequent 3 sets with normal CK MB. Cardiology following. Stress test pending. The cardiology consult note (Dr. Aguirre 01/03/17) states " Assessment: Chest pain, atypical - currently resolved; ECG with NAF." Clinical Findings Show: Stress test : This test is negative for ischemia Normal left ventricular systolic function with ejection fraction of 70% Please document the etiology of Chest Pain: [ ] Myocardial Infarction [ ] Pneumonia [ ] Mediastinitis [ ] Costochondritis [ ] Pulmonary Embolism [ ] Coronary Artery Disease [x ] GERD [ ] Other: [ ] Comment/Explanation: Present on Admission: [x ] Yes (Y) [ ] Clinically undeterminable (W) [ ] No(N) Please document response in your Progress Notes and/or Discharge Summary and indicate if the condition was present on admission. RAE
[2017-01-04 13:25] VITALS: BP 133/77
== END 2017-01-04 15:01 | disposition home or self-care (01) | DRG 392 ==
LOC: ED 15:40 → 4A 22:51
PROVIDERS: ADMIT Internal Medicine; ATTEND Internal Medicine
DX: K21.9 Gastro-esophageal reflux disease without esophagitis (principal); E66.9 Obesity, unspecified; I10 Essential (primary) hypertension; E78.5 Hyperlipidemia, unspecified; Z68.41 Body mass index [BMI] 40.0-44.9, adult; Z87.891 Personal history of nicotine dependence
CPT/HCPCS: 36415; 70450; 70551; 71010; 71275; 74174; 78452; 80048; 80061; 82550; 82553; 84484; 85025; 85520; 85610; 85730; 90686; 90732; 93005; 93010; 93017; 93306; A9502; J1644; Q9967